=== PATIENT | female | born 1955 | race Caucasian/White ===

== ENCOUNTER 2022-06-29 10:20 | Outpatient (CLI) | payer MEDICARE, SELFPAY ==
[2022-06-29 19:40] LABS: Alanine Aminotransferase 39 U/L (6-35); Albumin Level 4.2 g/dL (3.5-5.1); Alkaline Phosphatase 67 U/L (38-126); Anion Gap 3 mmol/L (8-16); Aspartate Amino Transferase 50 U/L (14-36); Bilirubin,Total 0.7 mg/dL (0.2-1.3); Blood Urea Nitrogen 12 mg/dL (7-17); Calcium 9.2 mg/dL (8.4-10.2); Carbon Dioxide 32 mmol/L (22-30); Chloride 98 mmol/L (98-107); Cholesterol 206 mg/dL (0-200); Estimated Glomerular Filt Rate > 60; Glucose 99 mg/dL (65-110); HDL Direct 34 mg/dL; Potassium 4.4 mmol/L (3.4-5.0); Sodium 133 mmol/L (137-145); Triglycerides 163 mg/dL (<150)
[2022-06-29 19:51] LABS: LDL Cholesterol Direct 126 mg/dL
[2022-06-29 20:37] LABS: Hemoglobin 15.3 g/dL (12.0-15.0); Mean Corpuscular HGB Conc 31.9 g/dl (32-36); Mean Corpuscular Hemoglobin 30.7 pg (26-34); Mean Corpuscular Volume 96.2 fl (80-100); Mean Platelet Volume 10.4 fl (7.4-10.4); Platelet Count Result 418 k/mm3 (150-375); Red Blood Count 4.99 M/mm3 (4.2-5.4); Red Cell Distribution Width 13.2 % (11.5-14.5); White Blood Count 9.1 K/mm3 (4.5-10.0)
[2022-07-03 15:43] LABS: Vitamin D 1,25 (OH)2 Total 63 pg/mL (18-72); Vitamin D2 1,25 (OH)2 <8 pg/mL; Vitamin D3 1,25 (OH)2 63 pg/mL
== END 2022-06-29 10:21 | disposition home or self-care (01) ==
LOC: ANHGOSHLAB 10:25
PROVIDERS: PCP Family Medicine; Visit Provider Family Medicine
DX: E66.9 Obesity, unspecified (principal); K21.9 Gastro-esophageal reflux disease without esophagitis; K58.9 Irritable bowel syndrome, unspecified; E55.9 Vitamin D deficiency, unspecified; Z79.899 Other long term (current) drug therapy
CPT/HCPCS: 36415; 80053; 80061; 82652; 84443; 85027

== ENCOUNTER 2022-08-23 01:01 | Day surgery (SDC) | payer MEDICARE, SELFPAY ==
[2022-08-11 10:26] VITALS: BMI 35.9
[2022-08-23 11:46] VITALS: BP 148/70; PULSE 78; RESP 18; TEMP 36.3; O2SAT 97
[2022-08-23] MEDS: LACTATED RINGERS 1,000 ML 150 ML IV CONT (12:07)
--- NOTE | 2022-08-23 12:20 | WPDANESEPPF ---
Anes - Initial Pre Proc Eval Procedure: Operation Date: 08/23/22 13:00 Proposed Procedures p Esophagogastroduodenoscopy & Colonoscopy - Jorge Wilson MD Date/Time: 08/23/22 12:20 Surgeon: Jorge Wilson MD Pre Op Diagnosis: hx colon polyps, GERD Patient Data Age: 66 Gender: F Height: 1.63 m Weight: 96.7 kg Last Vital Signs Temp 97.3 F L 08/23/22 11:46 Pulse 78 08/23/22 11:46 Resp 18 08/23/22 11:46 BP 148/70 H 08/23/22 11:46 Pulse Ox 97 08/23/22 11:46 O2 Del Method Room Air 08/23/22 11:46 Allergies Allergy/AdvReac Type Severity Reaction Status Date / Time bupropion [From Wellbutrin] Allergy Hives Verified 08/23/22 11:44 hydrocodone [From Vicodin] Allergy Itching Verified 08/23/22 11:44 Home Medications Medication Instructions Recorded Confirmed Type cholecalciferol (vitamin D3) 125 125 mcg PO DAILY 01/18/22 08/11/22 History mcg (5,000 unit) capsule ibuprofen 200 mg tablet (Advil) 200 mg PO Q6H PRN Pain 01/18/22 08/11/22 History omega-3 fatty acids 500 mg capsule 500 mg PO DAILY 01/18/22 08/11/22 History multivitamin 1 tablet PO DAILY 07/06/22 08/11/22 History apremilast 30 mg tablet (Otezla) 30 mg PO DAILY 08/11/22 08/11/22 History Patient hx anesthesia problems: none Family hx anesthesia problems: none Results Review: All pre-operative results and documents have been reviewed as part of the pre-operative evaluation. [facility] Past Medical History Medical History GERD (gastroesophageal reflux disease) IBS (irritable bowel syndrome) Surgical History Surgical History H/O: hysterectomy (~1999) History of cholecystectomy (~2005) History of tonsillectomy (~1972) Hx of lithotripsy (~2018) Family History Family History Father Alcoholism Asthma Cancer Depression Anxiety Sibling Alcoholism Asthma Cancer Depression Anxiety Grandparent Cancer Mother Depression Anxiety Cerebrovascular accident Social History Social History Social History: Caffeine-tea/soda Smoking packs per day: 0.5 Smoking cigarettes per day: 10.0 Years smoked: 10 Smoking pack-years: 5.00 Smoking status: Former smoker Tobacco type: cigarettes Alcohol intake: never Alcohol use details: wine Substance use type: does not use Lack of Transportation: No Lack of Food: Never True Current Housing: I Have Housing Concerned About Future Housing: No Difficulty Paying Gas/Electric Bills: No Difficulty Paying for Meds: No Currently Unemployed: No Education: Associate Degree Difficulty w/ Childcare or Family Care: No Living arrangements: with family Spiritual care concerns: No Anes - Eval Final PreProcedure Day of Procedure 08/23/22 12:20 Results Review: All pre-operative results and documents have been reviewed as part of the pre-operative evaluation. Informed Consent: The patient's anesthetic plan and its attendant risks and benefits were discussed with the patient/family/POA. Questions were solicited and answers provided to the satisfaction of the patient/family/POA.
--- NOTE | 2022-08-23 12:34 | WPDANESEPPF ---
Anes - Initial Pre Proc Eval Procedure: Operation Date: 08/23/22 13:00 Proposed Procedures p Esophagogastroduodenoscopy & Colonoscopy - Jorge Wilson MD Date/Time: 08/23/22 12:34 Surgeon: Jorge Wilson MD Pre Op Diagnosis: hx colon polyps, GERD Patient Data Age: 66 Gender: F Height: 1.63 m Weight: 96.7 kg Last Vital Signs Temp 97.3 F L 08/23/22 11:46 Pulse 78 08/23/22 11:46 Resp 18 08/23/22 11:46 BP 148/70 H 08/23/22 11:46 Pulse Ox 97 08/23/22 11:46 O2 Del Method Room Air 08/23/22 11:46 Allergies Allergy/AdvReac Type Severity Reaction Status Date / Time bupropion [From Wellbutrin] Allergy Hives Verified 08/23/22 11:44 hydrocodone [From Vicodin] Allergy Itching Verified 08/23/22 11:44 Home Medications Medication Instructions Recorded Confirmed Type cholecalciferol (vitamin D3) 125 125 mcg PO DAILY 01/18/22 08/11/22 History mcg (5,000 unit) capsule ibuprofen 200 mg tablet (Advil) 200 mg PO Q6H PRN Pain 01/18/22 08/11/22 History omega-3 fatty acids 500 mg capsule 500 mg PO DAILY 01/18/22 08/11/22 History multivitamin 1 tablet PO DAILY 07/06/22 08/11/22 History apremilast 30 mg tablet (Otezla) 30 mg PO DAILY 08/11/22 08/11/22 History Patient hx anesthesia problems: none Family hx anesthesia problems: none Results Review: All pre-operative results and documents have been reviewed as part of the pre-operative evaluation. [facility] Past Medical History Medical History GERD (gastroesophageal reflux disease) IBS (irritable bowel syndrome) Surgical History Surgical History H/O: hysterectomy (~1999) History of cholecystectomy (~2005) History of tonsillectomy (~1972) Hx of lithotripsy (~2018) Family History Family History Father Alcoholism Asthma Cancer Depression Anxiety Sibling Alcoholism Asthma Cancer Depression Anxiety Grandparent Cancer Mother Depression Anxiety Cerebrovascular accident Social History Social History Social History: Caffeine-tea/soda Smoking packs per day: 0.5 Smoking cigarettes per day: 10.0 Years smoked: 10 Smoking pack-years: 5.00 Smoking status: Former smoker Tobacco type: cigarettes Alcohol intake: never Alcohol use details: wine Substance use type: does not use Lack of Transportation: No Lack of Food: Never True Current Housing: I Have Housing Concerned About Future Housing: No Difficulty Paying Gas/Electric Bills: No Difficulty Paying for Meds: No Currently Unemployed: No Education: Associate Degree Difficulty w/ Childcare or Family Care: No Living arrangements: with family Spiritual care concerns: No Anes - Eval Final PreProcedure Day of Procedure 08/23/22 12:34 Patient weight: obese Heart: regular rate and rhythm Lungs: clear to auscultation Airway: Mallampati scale class II Neurological: alert and oriented Last oral intake: >/= 8 hours ASA classification: II Emergent: no Anesthetic plan: proceed Anesthesia type and monitoring: general GIVS and standard monitoring Results Review: All pre-operative results and documents have been reviewed as part of the pre-operative evaluation. Informed Consent: The patient's anesthetic plan and its attendant risks and benefits were discussed with the patient/family/POA. Questions were solicited and answers provided to the satisfaction of the patient/family/POA.
--- NOTE | 2022-08-23 12:36 | PM.HPGS ---
History of Present Illness History of Present Illness Consent: Risks, benefits, and alternatives have been discussed and questions answered. Patient agrees to proceed with procedure. Chief complaint: hx colon polyps, GERD Narrative: Celina Kent is a 66 year old female with gerd diagnosed after cough but now improved, not using ppi. She has ibs with intermittent diarrhea not using any medication, last colonoscopy in 2017 with polyps. Review of Systems Constitutional: Constitutional: Denies headache(s) and Denies weakness Eyes: Eyes: Denies blurry vision ENT: Reports Normal hearing present, Denies headache(s) and Denies neck pain Cardiovascular: Cardiovascular: Denies chest pain and Denies dyspnea Respiratory: Respiratory: Denies dyspnea Gastrointestinal: Gastrointestinal: Reports no additional gastrointestinal complaints Genitourinary: Genitourinary: Denies dysuria Musculoskeletal: Musculoskeletal: Denies neck pain Integumentary/Breasts: Skin/Breast: Denies dry skin Neurologic: Reports Normal hearing present, Denies headache(s) and Denies weakness Psychiatric: Psychiatric: Denies anxiety Endocrine: Endocrine: Denies change in body appearance Hematologic/Lymphatic: Hematologic/Lymphatic: Denies easy bleeding Allergic/Immunologic: Allergic/Immunologic: Denies urticaria PMFSH Past Medical History Medical History (Updated 08/23/22 @ 12:37 by Jorge Wilson MD) Adenomatous colon polyp GERD (gastroesophageal reflux disease) IBS (irritable bowel syndrome) Surgical History Surgical History H/O: hysterectomy (~1999) History of cholecystectomy (~2005) History of tonsillectomy (~1972) Hx of lithotripsy (~2019) Family History Family History Father Alcoholism Asthma Cancer Depression Anxiety Sibling Alcoholism Asthma Cancer Depression Anxiety Grandparent Cancer Mother Depression Anxiety Cerebrovascular accident Social History Social History Social History: Caffeine-tea/soda Smoking packs per day: 0.5 Smoking cigarettes per day: 10.0 Years smoked: 10 Smoking pack-years: 5.00 Smoking status: Former smoker Tobacco type: cigarettes Alcohol intake: never Alcohol use details: wine Substance use type: does not use Lack of Transportation: No Lack of Food: Never True Current Housing: I Have Housing Concerned About Future Housing: No Difficulty Paying Gas/Electric Bills: No Difficulty Paying for Meds: No Currently Unemployed: No Education: Associate Degree Difficulty w/ Childcare or Family Care: No Living arrangements: with family Spiritual care concerns: No Meds Home Medications and Allergies Home Medications Medication Instructions Recorded Confirmed Type cholecalciferol (vitamin D3) 125 125 mcg PO DAILY 01/18/22 08/11/22 History mcg (5,000 unit) capsule ibuprofen 200 mg tablet (Advil) 200 mg PO Q6H PRN Pain 01/18/22 08/11/22 History omega-3 fatty acids 500 mg capsule 500 mg PO DAILY 01/18/22 08/11/22 History multivitamin 1 tablet PO DAILY 07/06/22 08/11/22 History apremilast 30 mg tablet (Otezla) 30 mg PO DAILY 08/11/22 08/11/22 History Allergies Allergy/AdvReac Type Severity Reaction Status Date / Time bupropion [From Wellbutrin] Allergy Hives Verified 08/23/22 11:44 hydrocodone [From Vicodin] Allergy Itching Verified 08/23/22 11:44 Vital Signs Vital Signs - 24 hr 08/23/22 11:46 Temperature 97.3 F L Pulse Rate 78 Respiratory Rate 18 Blood Pressure 148/70 H Pulse Oximetry 97 Oxygen Delivery Room Air Exam Const: General: comfortable and no acute distress HENMT: Face/Nose/Sinus: Normal nares present Eyes: General: appearance normal, both eyes and all related structures Neck: Neck: no JVD Resp: Auscultation: clear t
--- NOTE | 2022-08-23 12:53 | SUR.OPER ---
EGD: [id number] COLON: [id number]
[2022-08-23 13:03] VITALS: BP 116/60; PULSE 90; RESP 22; O2SAT 97
[2022-08-23 13:13] VITALS: BP 111/57; PULSE 85; RESP 22; O2SAT 98
[2022-08-23 13:23] VITALS: BP 120/64; PULSE 81; RESP 21; O2SAT 98
== END 2022-08-23 13:37 | disposition home or self-care (01) ==
PROVIDERS: PCP Family Medicine; Visit Provider Internal Medicine Gastroenterology
PROC: 0DJ08ZZ Inspection of Upper Intestinal Tract, Via Natural or Artificial Opening Endoscopic (ICD-10-PCS; CPT 43235; principal; 2022-08-23 13:00)
DX: K58.9 Irritable bowel syndrome, unspecified (principal); K64.8 Other hemorrhoids; Z86.010 Personal history of colon polyps; K21.9 Gastro-esophageal reflux disease without esophagitis; K31.7 Polyp of stomach and duodenum; K29.50 Unspecified chronic gastritis without bleeding; Z87.891 Personal history of nicotine dependence; E66.9 Obesity, unspecified; Z68.36 Body mass index [BMI] 36.0-36.9, adult
CPT/HCPCS: 45380; 43239; 88305; 88342; J2704; J7120

== ENCOUNTER 2022-09-15 10:31 | Outpatient (CLI) | payer MEDICARE, SELFPAY ==
[2022-09-15 19:00] LABS: Hematocrit 45.8 % (37.0-47.0); Hemoglobin 14.8 g/dL (12.0-15.0); Mean Corpuscular HGB Conc 32.3 g/dl (32-36); Mean Corpuscular Hemoglobin 30.6 pg (26-34); Mean Corpuscular Volume 94.8 fl (80-100); Mean Platelet Volume 9.7 fl (7.4-10.4); Platelet Count Result 394 k/mm3 (150-375); Red Blood Count 4.83 M/mm3 (4.2-5.4); Red Cell Distribution Width 12.8 % (11.5-14.5)
[2022-09-15 19:41] LABS: Vitamin D 25 Hydroxy 31.2 ng/mL
[2022-09-15 19:53] LABS: Hemoglobin A1C 5.5 % (<5.7)
[2022-09-15 19:57] LABS: Alanine Aminotransferase 32 U/L (6-35); Alkaline Phosphatase 74 U/L (38-126); Anion Gap 5 mmol/L (8-16); Aspartate Amino Transferase 49 U/L (14-36); Bilirubin,Total 0.7 mg/dL (0.2-1.3); Blood Urea Nitrogen 10 mg/dL (7-17); Calcium 9.1 mg/dL (8.4-10.2); Carbon Dioxide 33 mmol/L (22-30); Chloride 102 mmol/L (98-107); Cholesterol 198 mg/dL (0-200); Estimated Glomerular Filt Rate > 60; Glucose 88 mg/dL (65-110); HDL Direct 36 mg/dL; Potassium 3.9 mmol/L (3.4-5.0); Sodium 140 mmol/L (137-145); Triglycerides 153 mg/dL (<150)
[2022-09-15 20:14] LABS: LDL Cholesterol Direct 131 mg/dL
[2022-09-21 05:40] LABS: Ceruloplasmin 29 mg/dL (18-53)
[2022-09-21 19:54] LABS: HLA B27 Negative (Negative)
[2022-09-21 22:24] LABS: Mitochondrial (M2) Ab (IgG) 42.1 U (<=20.0)
== END 2022-09-15 10:32 | disposition home or self-care (01) ==
LOC: ANHGOSHLAB 10:36
PROVIDERS: Nurse Practitioner; PCP Family Medicine; Visit Provider Internal Medicine Gastroenterology
DX: E78.5 Hyperlipidemia, unspecified (principal); E55.9 Vitamin D deficiency, unspecified; L40.9 Psoriasis, unspecified; R74.8 Abnormal levels of other serum enzymes; Z13.6 Encounter for screening for cardiovascular disorders; Z79.899 Other long term (current) drug therapy; Z13.1 Encounter for screening for diabetes mellitus; Z13.29 Encounter for screening for other suspected endocrine disorder
CPT/HCPCS: 36415; 80053; 80061; 82306; 82390; 83036; 83520; 84443; 85027; 86038; 86812

== ENCOUNTER 2022-09-30 13:50 | Outpatient (CLI) | payer MEDICARE, SELFPAY ==
--- NOTE | ~2022-09-30 | DEXA_ITS ---
Bone Density Report Name: JENNIFER PACK Age: 66 Sex: Female Ethnicity: White Date of : 1955 Indication: postmenopausal; screening for osteoporosis; height loss; inflammatory bowel disease; Referring Provider: EDWIN CLARK Study: Bone densitometry was performed. Exam Date: September 30, 2022 Accession number: [id number] Bone Density: Region BMD T-score Z-score Classification AP Spine(L1-L4) 1.017 -0.3 1.6 Normal Femoral Neck (Left) 0.676 -1.6 0.1 Osteopenia Total Hip (Left) 0.904 -0.3 1.0 Normal Femoral Neck (Right) 0.715 -1.2 0.4 Osteopenia Total Hip (Right) 0.861 -0.7 0.7 Normal Total Hip Mean 0.882 -0.5 0.9 Normal World Health Organization criteria for BMD impression classify patients as: Normal (T-score at or above -1.0), Osteopenia (T-score between -1.0 and -2.5), or Osteoporosis (T-score at or below -2.5). 10-year Fracture Risk(1): Major Osteoporotic Fracture 8.3% Hip Fracture 0.9% Reported Risk Factors: [place] (), Neck BMD=0.676, BMI=39.0 (1) FRAX(R) Version 3.08. Fracture probability calculated for an untreated patient. Fracture probability may be lower if the patient has received treatment. Clinical Information Provided by Patient: Has used the following medications: Vitamin D, Calcium Has the following medical conditions: Inflammatory bowel diseases Patient maximum height was 64 Menopause Age: 57 No regular weight bearing exercise Drinks caffeinated beverages Onset of menses at age 11 Number of children 1 Impression: The patient has low bone mass, based on the Left Femoral Neck T-score. The patient has an estimated ten-year risk of hip fracture of 0.9% and an estimated ten-year risk of major fracture of 8.3%, based on the WHO FRAX algorithm. Discussion: BONE DENSITY IS LOW AT ONE OR MORE SKELETAL SITES. This patient's lowest T-score is low at one or more skeletal sites. It meets the World Health Organization's (WHO) criteria for ?low bone mass? (T-score between -1.0 and -2.5). The patient's 10-year risk of fracture as calculated by FRAX is less than the threshold where pharmacological therapy is recommended by the National Osteoporosis Foundation (NOF). However, all treatment decisions require clinical judgment and consideration of individual patient factors, including patient preferences, comorbidities, previous drug use, risk factors not captured in the FRAX model (e.g., frailty, falls, vitamin D deficiency, increased bone turnover, interval significant decline in bone density) and possible under or overestimation of fracture risk by FRAX. The patient should follow a healthful lifestyle (good nutrition with adequate calcium and vitamin D, and appropriate weight-bearing exercise). Follow-Up: Consider repeating this study in 2 to 3 years to reasse
--- NOTE | ~2022-09-30 | MM_ITS ---
EXAMINATION: MM screening grabiel BI w nida HISTORY: Screening mammogram, family history of breast cancer in her sister. TECHNIQUE: Craniocaudal and mediolateral oblique 3-D tomosynthesis images were obtained and synthetic 2-D images were generated. CAD analysis was submitted and interpreted. COMPARISON: No prior mammogram is available for comparison at this institution. BREAST PARENCHYMAL COMPOSITION: There are scattered areas of fibroglandular density. FINDINGS: RIGHT BREAST: No suspicious mass, calcification, or architectural distortion are identified to sugges t malignancy. LEFT BREAST: There is focal asymmetry in the posterior third of the upper outer quadrant of the breas t. IMPRESSION: 1. Focal asymmetry of the left breast. 2. Additional mammographic views and possible breast ultrasound are recommended. BI-RADS Category 0: Incomplete: Needs additional imaging evaluation. Reviewed, dictated and finalized at location A. IMPRESSION: 1. Focal asymmetry of the left breast. 2. Additional mammographic views and possible breast ultrasound are recommended . BI-RADS Category 0: Incomplete: Needs additional imaging evaluation.
== END 2022-09-30 13:51 | disposition home or self-care (01) ==
LOC: ANHIMG 13:51
PROVIDERS: PCP Family Medicine; Visit Provider Family Medicine
DX: Z12.31 Encounter for screening mammogram for malignant neoplasm of breast (principal); Z78.0 Asymptomatic menopausal state; R92.8 Other abnormal and inconclusive findings on diagnostic imaging of breast; M85.852 Other specified disorders of bone density and structure, left thigh; M85.851 Other specified disorders of bone density and structure, right thigh
CPT/HCPCS: 77063; 77067; 77080

== ENCOUNTER 2022-10-04 11:38 | Outpatient (CLI) | payer MEDICARE, SELFPAY ==
[2022-10-04 20:50] LABS: Hepatitis B Surface Antigen Negative (Negative)
[2022-10-04 21:07] LABS: Hepatitis B Surface Anti Res Negative; Hepatitis C Virus Antibody Negative (Negative)
[2022-10-04 21:15] LABS: Iron 61 ug/dL (37-170)
[2022-10-04 22:13] LABS: Percent Iron Saturation 17 % (20-50)
[2022-10-04 22:29] LABS: Alanine Aminotransferase 30 U/L (6-35); Albumin Level 4.2 g/dL (3.5-5.1); Alkaline Phosphatase 77 U/L (38-126); Anion Gap 5 mmol/L (8-16); Aspartate Amino Transferase 38 U/L (14-36); Bilirubin,Total 0.6 mg/dL (0.2-1.3); Blood Urea Nitrogen 12 mg/dL (7-17); Carbon Dioxide 30 mmol/L (22-30); Chloride 102 mmol/L (98-107); Cholesterol 216 mg/dL (0-200); Estimated Glomerular Filt Rate > 60; Glucose 100 mg/dL (65-110); HDL Direct 39 mg/dL; Potassium 4.4 mmol/L (3.4-5.0); Sodium 137 mmol/L (137-145); Triglycerides 146 mg/dL (<150)
[2022-10-04 22:43] LABS: LDL Cholesterol Direct 154 mg/dL
[2022-10-15 00:01] LABS: ALT 20 U/L (6-29); Alpha-2-Macroglobulin 151 mg/dL (106-279); Apolipoprotein A1 167 mg/dL (101-198); Fibrosis Score 0.09; Fibrosis Stage F0; GGT 21 U/L (3-65); Haptoglobin 148 mg/dL (43-212); Necroinflammat Act Grade A0; Total Bilirubin 0.4 mg/dL (0.2-1.2)
== END 2022-10-04 11:39 | disposition home or self-care (01) ==
LOC: ANHGOSHLAB 11:40
PROVIDERS: PCP Family Medicine; Visit Provider Internal Medicine Gastroenterology
DX: R74.8 Abnormal levels of other serum enzymes (principal); E78.5 Hyperlipidemia, unspecified
CPT/HCPCS: 36415; 80053; 80061; 81596; 82728; 83540; 83550; 86706; 86803; 87340

== ENCOUNTER 2022-10-11 07:57 | Outpatient (CLI) | payer MEDICARE, SELFPAY ==
--- NOTE | ~2022-10-11 | US_ITS ---
US abdomen limited INDICATION: Abnormal levels of serum enzymes PROCEDURE: Realtime right upper abdominal ultrasound. COMPARISON: No prior studies for comparison. FINDINGS: The pancreas is normal without focal mass or pancreatic ductal dilation. Liver echotexture is increased, consistent with fatty infiltration. There is normal directional flow in the portal ve in. Gallbladder is surgically absent. Common bile duct measures 6 mm. No sonographic Wasserman's sign. IMPRESSION: 1: Hepatic steatosis. Reviewed, dictated and finalized at location B. IMPRESSION: 1: Hepatic steatosis.
== END 2022-10-11 07:58 | disposition home or self-care (01) ==
PROVIDERS: PCP Family Medicine; Visit Provider Nurse Practitioner
DX: R74.8 Abnormal levels of other serum enzymes (principal); K76.0 Fatty (change of) liver, not elsewhere classified
CPT/HCPCS: 76705

== ENCOUNTER 2022-12-22 10:28 | Outpatient (CLI) | payer MEDICARE, SELFPAY ==
[2022-12-22 10:58] LABS: Kit Draw Collected
== END 2022-12-22 10:29 | disposition home or self-care (01) ==
LOC: ANHGOSHLAB 10:31
PROVIDERS: PCP Family Medicine; Visit Provider Nurse Practitioner
DX: E78.5 Hyperlipidemia, unspecified (principal); R53.83 Other fatigue; R74.8 Abnormal levels of other serum enzymes; E55.9 Vitamin D deficiency, unspecified
CPT/HCPCS: 36415

== ENCOUNTER 2023-03-16 11:04 | Outpatient (CLI) | payer MEDICARE, SELFPAY ==
--- NOTE | 2023-03-16 11:22 | ECG_ITS ---
Measurements Intervals [place] Rate: 70 P: 33 VA: 180 QRS: 22 QRSD: 99 T: 29 QT: 393 QTc: 426 Interpretive Statements SINUS RHYTHM NO PREVIOUS ECG AVAILABLE FOR COMPARISON Electronically Signed On 03-16-2023 20:22:43 CDT by Felicitas Lucero M.D.
== END 2023-03-16 11:05 | disposition home or self-care (01) ==
LOC: ANHCARD 11:06
PROVIDERS: PCP Family Medicine; Visit Provider Family Medicine
DX: Z01.810 Encounter for preprocedural cardiovascular examination (principal)
CPT/HCPCS: 93005

== ENCOUNTER 2023-07-08 10:11 | Outpatient (CLI) | payer MEDICARE, SELFPAY ==
[2023-07-08 17:39] LABS: Iron 97 ug/dL (37-170)
[2023-07-08 17:48] LABS: Hematocrit 48.7 % (37.0-47.0); Hemoglobin 15.3 g/dL (12.0-15.0); Mean Corpuscular HGB Conc 31.4 g/dl (32-36); Mean Corpuscular Hemoglobin 29.5 pg (26-34); Mean Corpuscular Volume 93.8 fl (80-100); Mean Platelet Volume 9.8 fl (7.4-10.4); Platelet Count Result 441 k/mm3 (150-375); Red Blood Count 5.19 M/mm3 (4.2-5.4); Red Cell Distribution Width 13.1 % (11.5-14.5); White Blood Count 12.5 K/mm3 (4.5-10.0)
[2023-07-08 17:49] LABS: Percent Iron Saturation 29 % (20-50)
[2023-07-08 18:01] LABS: Alanine Aminotransferase 24 U/L (6-35); Albumin Level 4.2 g/dL (3.5-5.1); Alkaline Phosphatase 82 U/L (38-126); Anion Gap 5 mmol/L (8-16); Aspartate Amino Transferase 49 U/L (14-36); Bilirubin,Total 0.7 mg/dL (0.2-1.3); Blood Urea Nitrogen 11 mg/dL (7-17); Calcium 9.7 mg/dL (8.4-10.2); Carbon Dioxide 34 mmol/L (22-30); Chloride 101 mmol/L (98-107); Cholesterol 234 mg/dL (0-200); Estimated Glomerular Filt Rate > 60; Glucose 103 mg/dL (65-110); HDL Direct 37 mg/dL; Potassium 4.2 mmol/L (3.4-5.0); Sodium 140 mmol/L (137-145); Triglycerides 159 mg/dL (<150)
[2023-07-08 18:12] LABS: LDL Cholesterol Direct 160 mg/dL
[2023-07-12 02:08] LABS: Vitamin D 1,25 (OH)2 Total 61 pg/mL (18-72); Vitamin D2 1,25 (OH)2 <8 pg/mL; Vitamin D3 1,25 (OH)2 61 pg/mL
== END 2023-07-08 10:12 | disposition home or self-care (01) ==
LOC: ANHGOSHLAB 10:14
PROVIDERS: PCP Family Medicine; Visit Provider Family Medicine
DX: K76.0 Fatty (change of) liver, not elsewhere classified (principal); E78.5 Hyperlipidemia, unspecified; R74.8 Abnormal levels of other serum enzymes; Z79.899 Other long term (current) drug therapy; K21.9 Gastro-esophageal reflux disease without esophagitis; E55.9 Vitamin D deficiency, unspecified; E66.9 Obesity, unspecified
CPT/HCPCS: 36415; 80053; 80061; 82652; 82728; 83540; 83550; 84443; 85027

== ENCOUNTER 2023-12-16 11:52 | Outpatient (CLI) | payer MEDICARE, SELFPAY ==
[2023-12-24 17:03] LABS: Calprotectin, Stool 95 mcg/g
== END 2023-12-16 11:53 | disposition home or self-care (01) ==
LOC: ANHLAB 11:54
PROVIDERS: PCP Family Medicine; Visit Provider Nurse Practitioner Family
DX: R19.7 Diarrhea, unspecified (principal); R15.2 Fecal urgency
CPT/HCPCS: 83993

== ENCOUNTER 2024-01-03 07:30 | Outpatient (CLI) | payer MEDICARE, SELFPAY ==
--- NOTE | ~2024-01-03 | US_ITS ---
Limited ABDOMINAL ULTRASOUND Ordering provider: Jessica Santoro APRN History: . K76.0 - Fatty (change of) liver, not elsewhere classified . Comparison: None. FINDINGS: LIVER: Normal size. Fat infiltration is noted with increased echogenicity. No focal hepatic lesions o r perihepatic fluid collections are identified. Normal portal vein flow. GALLBLADDER: Status post surgical removal. BILIARY DUCTS: No evidence for intra or extrahepatic biliary dilation. Common bile duct measures 8.9 mm in diameter which is within normal limits. PANCREAS: Normal echotexture and size. UPPER ABDOMINAL AORTA: Normal in caliber. IVC: Patent. FREE FLUID: None. IMPRESSION: Fat infiltration of the liver. Otherwise, Unremarkable limited ultrasound of the abdomen. Reviewed, dictated and finalized at location A. IMPRESSION: Fat infiltration of the liver. Otherwise, Unremarkable limited ultrasound of th e abdomen.
== END 2024-01-03 07:31 | disposition home or self-care (01) ==
PROVIDERS: PCP Family Medicine; Visit Provider Nurse Practitioner Family
DX: K76.0 Fatty (change of) liver, not elsewhere classified (principal)
CPT/HCPCS: 76705

== ENCOUNTER 2024-03-01 14:33 | Outpatient (CLI) | payer MEDICARE, SELFPAY ==
--- NOTE | ~2024-03-01 | US_ITS ---
EXAMINATION: US venous doppler [facility] DATE: 03/01/2024 15:49 INDICATION: Lower limb edema. TECHNIQUE: Grayscale ultrasound images without and with compression and Doppler ultrasound images of the bilateral lower extremity veins were obtained. COMPARISON: None. FINDINGS: The visualized portions of right common femoral vein, profunda (deep) femoral vein, femoral vein, pop liteal vein, peroneal veins, posterior tibial veins, and greater saphenous vein outflow are patent. The visualized portions of left common femoral vein, profunda femoral vein, femoral vein, popliteal v ein, peroneal veins, posterior tibial veins, and greater saphenous vein outflow are patent. IMPRESSION: 1. No deep venous thrombosis. Reviewed, dictated and finalized at location A.
== END 2024-03-01 14:34 | disposition home or self-care (01) ==
LOC: ANHIMG 14:36
PROVIDERS: PCP Family Medicine; Visit Provider Nurse Practitioner
DX: R60.9 Edema, unspecified (principal)
CPT/HCPCS: 93970

== ENCOUNTER 2024-06-18 11:10 | Emergency (ER) | payer MEDICARE, SELFPAY ==
--- NOTE | ~2024-06-18 | XR_ITS ---
EXAMINATION: XR chest 2V DATE: 06/18/2024 12:36 INDICATION: 2 days of cough TECHNIQUE: PA and lateral views of the chest were obtained. COMPARISON: None FINDINGS: Mild streaky lingular atelectasis along side a small left paracardial fat pad. No other airspace opac ities, pulmonary edema, pleural effusion or pneumothorax. Heart size is normal. Moderate thoracic spo ndylosis. Cholecystectomy clips in right upper quadrant. IMPRESSION: 1. Mild streaky lingular atelectasis. Reviewed, dictated and finalized at location B. L INSPECTOR
[2024-06-18 11:32] VITALS: BP 139/95; PULSE 87; RESP 18; TEMP 36.6; O2SAT 99
--- NOTE | 2024-06-18 12:02 | ED_ITS ---
HPI - URI/Sore Throat General Chief Complaint: Upper Respiratory Infection Stated Complaint: Cough Time Seen by Provider: 06/18/24 12:02 Source: patient Mode of arrival: ambulatory Limitations: no limitations History of Present Illness HPI Narrative: 68-year-old female presented for complaint of a cough for 4 days. Denies associated shortness of breath, chest pain, palpitations, nausea, vomiting, fevers or lethargy. Related Data Home Medications ?Medication ?Instructions ?Recorded ?Confirmed ?Last Taken ?Type cholecalciferol (vitamin D3) 125 125 mcg PO DAILY 01/18/22 06/18/24 08/19/22 History mcg (5,000 unit) capsule ibuprofen 200 mg tablet (Advil) 200 mg PO Q6H PRN Pain 01/18/22 06/18/24 Unknown History omega-3 fatty acids 500 mg capsule 500 mg PO DAILY 01/18/22 06/18/24 08/19/22 History multivitamin 1 tablet PO DAILY 07/06/22 06/18/24 08/19/22 History apremilast 30 mg tablet (Otezla) 60 mg PO DAILY 11/16/22 06/18/24 Unknown History vitamin E (dl, acetate) 45 mg (100 135 mg PO DAILY 11/16/22 06/18/24 Unknown History unit) capsule ascorbate calcium (vitamin C) 500 500 mg PO DAILY 07/08/23 06/18/24 Unknown History mg tablet Allergies Allergy/AdvReac Type Severity Reaction Status Date / Time bupropion (From Wellbutrin) Allergy Hives Verified 06/18/24 11:38 hydrocodone (From Vicodin) Allergy Itching Verified 06/18/24 11:38 Review of Systems Review of Systems: CONSTITUTIONAL: Denies body aches, fever, chills, or sweats. EYES: Denies visual changes, redness, or discharge. ENT: Denies rhinorrhea, congestion, sore throat, or otalgia. CARDIOVASCULAR: Denies chest pain, palpitations, or edema. RESPIRATORY: Reports cough, denies sob, wheezing. GASTROINTESTINAL: Denies abdominal pain, nausea, vomiting, or diarrhea. MUSCULOSKELETAL: Denies back pain, joint pain, or myalgia. NEUROLOGIC: Reports headache All systems reviewed & are unremarkable except as noted in HPI and below PMFSH Past Medical History Medical History BMI 39.0-39.9,adult Fatty liver Primary biliary cholangitis Irritable bowel syndrome with diarrhea Adenomatous colon polyp GERD (gastroesophageal reflux disease) IBS (irritable bowel syndrome) Surgical History Surgical History History of tonsillectomy (~1972) H/O: hysterectomy (~1999) History of cholecystectomy (~2005) Hx of lithotripsy (~2018) Family History Family History Father Alcoholism Asthma Cancer Depression Anxiety Sibling Alcoholism Asthma Cancer Depression Anxiety Grandparent Cancer Mother Depression Anxiety Cerebrovascular accident Social History Social History Social History: Caffeine-tea/soda Smoking packs per day: 0.5 Smoking cigarettes per day: 10.0 Years smoked: 10 Smoking pack-years: 5.00 Smoking status: Former smoker Tobacco type: cigarettes Alcohol intake: never Alcohol use details: wine Substance use type: does not use Lack of Transportation: No Lack of Food: Never True Current Housing: I Have Housing Concerned About Future Housing: No Difficulty Paying Gas/Electric Bills: No Difficulty Paying for Meds: No Currently Unemployed: No Education: Associate Degree Difficulty w/ Childcare or Family Care: No Living arrangements: with family Spiritual care concerns: No Comments At time of signature, I have reviewed and agree with nursing past medical, surgical, social and family history unless otherwise noted. Please see nursing chart for further information. There is no relevant family history pertinent to the presenting complaint Exam Narrative: GENERAL: Well-appearing, in no acute distress. EYES: EOMI. No redness or drainage. Conjunctivae normal. ENT: Mucous membranes pink and moist. No rhinorrhea. TMs normal bilaterally. Throat normal. Uvula midline. NECK: Normal AROM. Supple. CHEST: No respiratory distress. Lungs clear to all zaragoza. Frequent harsh nonproductive cough HEART: Regular rate and rhythm. No murmur appreciated. ABDOMEN: Soft, nontender, nondistended, normal active bowel sounds. SKIN: Warm, dry, no rash. Capillary refill normal. Normal skin turgor. NEURO: Alert and oriented x3. Gait steady. PSYCH: Normal affect. Course Course Emergency Course: Patient is aware of diagnosis, understands and agrees to treatment plan. Anticipatory guidance given. Patient agrees to follow-up as directed and is aware of reasons to seek care at the emergency department. Portions of this record may have been created with voice recognition software Level of Care: Express Care Visit Vital Signs Vital signs: Vital Signs Temperature 97.9 F 06/18/24 11:32 Pulse Rate 87 06/18/24 11:32 Respiratory Rate 18 06/18/24 11:32 Blood Pressure 139/95 H 06/18/24 11:32 Pulse Oximetry 99 06/18/24 11:32 Oxygen Delivery Room Air 06/18/24 11:32 Temperature 97.9 F 06/18/24 11:32 Pulse Rate 87 06/18/24 11:32 Respiratory Rate 18 06/18/24 11:32 Blood Pressure 139/95 H 06/18/24 11:32 Pulse Oximetry 99 06/18/24 11:32 Oxygen Delivery Room Air 06/18/24 11:32 MDM - URI/Sore Throat MDM Narrative Medical decision making narrative: Discussed physical exam findings, negative flu and COVID. Chest x-ray reviewed with patient.. Advised supportive measures and signs/symptoms to go to the ER. Pt is appropriate for outpt treatment and f/u. Lab Data Labs: Lab Results 06/18/24 Range/Units 11:58 POC Influenza A Ag Negative (Negative) POC Influenza B Ag Negative (Negative) POC SARS CoV-2 Ag Negative (Negative) Imaging Data Radiologist's impression: Patient: Celina Kent : 1955 MR#: [id number] Age: 68 Acct:[id number] Loc: [facility] ADM Date: 06/18/24Attending Dr: Ordering Physician: Nicki Hatfield APRN Date of Service: 06/18/24 Procedure(s): XR chest 2V Accession Number(s): [id number] cc: Nicki Hatfield APRN; Cici Mcknight DO~ EXAMINATION: XR chest 2V DATE: 06/18/2024 12:36 INDICATION: 2 days of cough TECHNIQUE: PA and lateral views of the chest were obtained. COMPARISON: None FINDINGS: Mild streaky lingular atelectasis along side a small left paracardial fat pad. No other airspace opacities, pulmonary edema, pleural effusion or pneumothorax. Heart size is normal. Moderate thoracic spondylosis. Cholecystectomy clips in right upper quadrant. IMPRESSION: 1. Mild streaky lingular atelectasis. Discharge Plan Discharge Clinical Impression: Bronchitis Patient Disposition: Home, Self-Care Condition: Stable Instructions: Antibiotic Form, Acute Bronchitis (ED) Additional Instructions: Flu and COVID negative. Acute bronchitis can be contagious because it is usually caused by infection with a virus or bacteria. It is usually for a few days but you can be contagious for up to one week. Avoid crowds until you do not have a fever and symptoms are improved Take medication as directed Recommend Flonase spray and Zyrtec (or Claritin/Lacey) over the counter Cough syrup may cause drowsiness; avoid driving or take it at night time. Tylenol 1000mg every 8 hours as needed for pain Symptomatic treatment includes: rest, fluids, and increase humidity of the air at home. Follow up with your primary care provider as needed in 1 week Go to the ER for worsening symptoms or concerns Patient Language: [place] Citizen Prescriptions: New benzonatate 200 mg capsule 200 mg PO TID PRN (Reason: cough) Qty: 20 0RF azithromycin [Zithromax Z-Nando] 250 mg tablet See Rx Instructions .ROUTE .COMPLEX Qty: 6 0RF Rx Instructions: For 250 mg dose pack: take 500 mg today (day 1), then 250 mg for 4 days (days 2-5) No Action ibuprofen [Advil] 200 mg tablet 200 mg PO Q6H PRN (Reason: Pain) cholecalciferol (vitamin D3) 125 mcg (5,000 unit) capsule 125 mcg PO DAILY omega-3 fatty acids 500 mg capsule 500 mg PO DAILY multivitamin Tablet 1 tablet PO DAILY vitamin E (dl, acetate) 45 mg (100 unit) capsule 135 mg PO DAILY ascorbate calcium (vitamin C) 500 mg tablet 500 mg PO DAILY Otezla 30 mg tablet 60 mg PO DAILY Follow-up/Referrals: Cici Mcknight DO [Primary Care Provider] -
[2024-06-18 12:06] LABS: EDCOVIDSCREEN Negative (Negative); EDINFLUASCREEN Negative (Negative); EDINFLUBSCREEN Negative (Negative)
== END 2024-06-18 13:14 | disposition home or self-care (01) ==
PROVIDERS: Emergency Provider Nurse Practitioner Family; PCP Family Medicine
DX: J40 Bronchitis, not specified as acute or chronic (principal); Z20.822 Contact with and (suspected) exposure to COVID-19; Z87.891 Personal history of nicotine dependence; K21.9 Gastro-esophageal reflux disease without esophagitis; K76.0 Fatty (change of) liver, not elsewhere classified
CPT/HCPCS: 71046; 87426; 87804; 99213; G0463

== ENCOUNTER 2024-06-18 13:20 | Outpatient (CLI) | payer MEDICARE, SELFPAY ==
--- OUTSIDE RECORDS SUMMARY | 2024-06-18 14:03 | XMS_ITS | Patient Health Summary ---
Author Organization [facility] Address [address] [place] [address] Care Team Providers Care Senior Oracle Soa Developer Name Role Phone Cici Mcknight DO Primary Care Provider [phone] Note from [facility],non-owned Affiliates and Associated Physician Practices is amultiple site organization consisting of ambulatory clinics and hospital sitesin [place], [place], [place] and [place]. This disclosure is being madepursuant to the Care Everywhere program and may not contain all information available regarding this patient. Last updated 18.[facility] Allergies * Adhesive Sensitivity(Rash) -Medium Criticality * Hydrocodone(Itching) -Medium Criticality * Bupropion(Urticaria,Rash) -Medium Criticality Medications * Be aware that medications may not be up to date on this document. Alwaysverify current medications with the patient. * CRANBERRY PO Take 700 mg by mouth once daily * ibuprofen (Advil) 200 MG capsule Take 1 (one) capsule by mouth 2 times daily as needed * Red Yeast Rice Extract (RED YEAST RICE PO) Take 200 mg by mouth once daily * Cholecalciferol ( Vitamin D3) 100 MCG (4000 UT) Take 1 capsule by mouth once daily * Multiple Vitamin (MULTIVITAMIN PO) Take by mouth once daily * Vitamin E 268 MG (400 UNIT) TABS Take 1 tablet by mouth once daily * ascorbic acid (Vitamin C) 500 MG tablet Take 1 (one) tablet by mouth once daily * Apremilast (Otezla) 30 MG Take 2 (two) tablets by mouth 2 times daily Active Problems Problem Noted Date Diagnosed Date Ptosis of both eyelids 02/10/2024 Dermatochalasis of both upper eyelids 02/10/2024 Xanthelasma of eyelid, bilateral 02/10/2024 Social History Tobacco Use Types Packs/Day Years Used Date Smoking Tobacco: Former Cigarettes Smokeless Tobacco: Never Tobacco Cessation:Counseling Given: Not Answered Alcohol Use Standard Drinks/Week Comments Yes 0 (1 standard drink = 0.6 oz pur e alcohol) 1 glass of wine per month AUDIT-C Answer Date Recorded Q1: How often do you have a drink containing alcohol? Never 05/09/2024 Q2: How many drinks containi ng alcohol do you have on a typical day when you are drinking? Patient does not drink Q3: How often do you have si x or more drinks on one occasion? Never 05/09/2024 Sex and Gender Information Value Date Recorded Sex Assigned at Not on file Gender Identity Not on file Sexual Orientation Not on file Last Filed Vital Signs Vital Sign Reading Time Taken Comments Blood Pressure 139/74 05/09/2024 1:46 PM REST ROOM ATTENDANT Pulse 77 05/09/2024 1:46 PM REST ROOM ATTENDANT Temperature 36.3 ??C (97.4 ??F) 05/09/2024 1:36 PM CS T Respiratory Rate 13 05/09/2024 1:46 PM REST ROOM ATTENDANT Oxygen Saturation 92% 05/09/2024 1:46 PM REST ROOM ATTENDANT Inhaled Oxygen Concentration - - Weight 93.9 kg (207 lb) 05/09/2024 9:32 AM REST ROOM ATTENDANT Height 162.6 cm (5' 4 ) 05/09/2024 9:32 AM REST ROOM ATTENDANT Body Mass Index 35.53 05/09/2024 9:32 AM REST ROOM ATTENDANT Procedures * KS FIX LID PTOSIS,LEVATR RESEC,CORRESPONDENCE ANALYST(Performed 05/09/2024) Performed for Ptosis of both eyelids, Dermatochalasis of both upper eyelids, Xanthelasma of eyelid,bilateral * KEITH AUTO VISUAL FIELD EXTENDED(Performed 01/31/2024) Performed for Ptosis of both eyelids Results * KEITH AUTO VISUAL FIELD EXTENDED (01/31/2024 3:34 PM CDT) Anatomical Region Laterality Modality Head External-Camera Photography Narrative 02/15/2024 2:08 PM CDT Keith visual field Reversible superior visual field deficit Right: 25 degrees to 33 degrees Left: 23 degrees to 37 degrees Nicki Ellis ADMINISTRATIVE PROGRAM SPECIALIST-INSTRUCTOR TRAFFIC SAFETY OPHTHALMOLOGY S CHED ORD W PACS Care Teams Senior Oracle Soa Developer Relationship Specialty Start Date End Date Cici Mcknight DO [address] [place] [address] PCP - General 09/14/22
--- OUTSIDE RECORDS SUMMARY | 2024-06-18 14:03 | XMS_ITS | Referral Summary ---
Author Organization [facility] Address [address] [place] [address] Care Team Providers Care Grand Jury Deputy Sheriff Name Role Phone Cici Mcknight DO Primary Care Provider [phone] Social History Tobacco Use Types Packs/Day Years Used Date Smoking Tobacco: Never Assessed Personal Safety Answer Date Recorded Getting School Help Needed Not on file 09/26 Comments Unknown Sex and Gender Information Value Date Recorded Sex Assigned at Not on file Legal Sex Female 9:32 AM CDT Gender Identity Not on file Sexual Orientation Not on file Plan of Treatment Not on file Procedures Procedure Name Priority Date/Time Associated Diagnosis Comments SCREENING MAMMOGRAM BILATERAL W ERIC Schedule Routine, Read Routine (OP Routine) 10/27/2023 3:13 PM CDT Screening mammogram, encounter for from Last 3 Months or Most Recently Relevant to Health Maintenance Results * Screening Mammogram Bilateral W Eric (10/27/2023 3:13 PM CDT) Anatomical Region Laterality Modality Breast Bilateral Mammography Narrative 10/28/2023 1:03 PM CDT Mammogram Technique: Bilateral Digital Breast Tomosynthesis, Bilateral C-view 2D Screening mammogram. ??Views obtained: ??bilateral craniocaudal and bilateral mediolateral oblique. ??Computer Aided Detection was performed. Mammogram Findings: The present examination has been compared to a prior imaging study performed at [facility]. [facility] on 09/30/2022. There are scattered areas of fibroglandular density. There is no suspicious abnormality in either breast. Impression: There is no mammographic evidence of malignancy. Annual screening mammography is recommended. OVERALL FINAL ASSESSMENT: BI-RADS CATEGORY 1: ??Negative. Procedure Note Earline Dorado MD - 10/28/2023 Mammogram Technique: Bilateral Digital Breast Tomosynthesis, Bilateral C-view 2D Screening mammogram. Views obtained: bilateral craniocaudal and bilateral mediolateral oblique. Computer Aided Detection was performed. Mammogram Findings: The present examination has been compared to a prior imaging study performed at [facility] on 09/30/2022. There are scattered areas of fibroglandular density. There is no suspicious abnormality in either breast. Impression: There is no mammographic evidence of malignancy. Annual screening mammography is recommended. OVERALL FINAL ASSESSMENT: BI-RADS CATEGORY 1: Negative. us Self Screening Mammogram IMG MAMMO PROCEDURES Fi nal Result from Last 3 Months or Most Recently Relevant to Health [place] [address] MEDICARE COMMERCIAL GENERIC [place] [id number] MEDICARE COMMERCIAL GENERIC Care Teams Grand Jury Deputy Sheriff Relationship Specialty Start Date End Date Cici Mcknight DO [facility] [place] [address] PCP - General Family Medicine 09/27/23
--- OUTSIDE RECORDS SUMMARY | 2024-06-18 14:03 | XMS_ITS | Clinical Summary ---
Author Organization [facility] Address [address] [place] [address] Care Team Providers Care Manager Cardiovascular Name Role Phone Cici Mcknight DO Primary Care Provider [phone] Source Comments [facility],non-owned Affiliates and Associated Physician Practices is amultiple site organization consisting of ambulatory clinics and hospital sitesin [place], [place], [place] and [place]. This disclosure is being madepursuant to the Care Everywhere program and may not contain all information available regarding this patient. Last updated 18.[facility] Allergies Active Allergy Reactions Criticality Noted Date Comments Adhesive Sensitivity Rash Medium 01/31/2024 Hydrocodone Itching Medium 01/31/2024 Bupropion Urticaria,Rash Medium 01/31/2024 Medications * Be aware that medications may not be up to date on this document. Alwaysverify current medications with the patient. Medication Sig Dispensed Refills Start Date End Date Status CRANBERRY PO Take 700 mg by mouth once daily Active ibuprofen (Advil) 200 MG capsule Take 1 (one) capsule by mouth 2 times daily as needed Active Red Yeast Rice Extract (RED YEAST RICE PO) Take 200 mg by mouth once daily Active Cholecalciferol (SM Vitamin D3) 100 MCG (4000 UT) Take 1 capsule by mouth once daily Active Multiple Vitamin (MULTIVITAMIN PO) Take by mouth once daily Active Vitamin E 268 MG (400 UNIT) TABS Take 1 tablet by mouth once daily Active ascorbic acid (Vitamin C) 500 MG tablet Take 1 (one) tablet by mouth once daily Active Apremilast (Otezla) 30 MG Take 2 (two) tablets by mouth 2 times daily Active Active Problems Problem Noted Date Diagnosed Date Ptosis of both eyelids 02/10/2024 Dermatochalasis of both upper eyelids 02/10/2024 Xanthelasma of eyelid, bilateral 02/10/2024 Encounters Date Type Department Care Team Description 05/17/2024 9:45 AM CUSTOMER RETENTION SPECIALIST Office Visit [facility] - Ophthalmology [address] [place] [phone] Jillian Gomes MD Ptosis of both eyelids (Primary Dx); Dermatochalasis of both upper eyelids; Xanthelasma of upper and lower eyelids of both eyes 05/17/2024 Travel 05/09/2024 11:07 AM CUSTOMER RETENTION SPECIALIST Anesthesia Event [facility] [address] [place] [phone] Chidi Walker MD Rinderer, Mallory, [facility] 05/09/2024 11:00 AM CUSTOMER RETENTION SPECIALIST - 05/09/2024 1:20 PM CUSTOMER RETENTION SPECIALIST Surgery [facility] [address] [place] [phone] Jillian Gomes MD Bilateral ptosis repair via blepharoplasty incision and excision of bilateral upper and lower eyelid xanthelasma, BILATERAL 05/09/2024 9:13 AM CUSTOMER RETENTION SPECIALIST - 05/09/2024 2:19 PM CUSTOMER RETENTION SPECIALIST Hospital Encounter [facility] [address] [place] [phone] Jillian Gomes MD Surgery General Discharge Disposition: Home or Self Care 05/09/2024 Travel from Last 3 Months Social History Tobacco Use Types Packs/Day Years [...] Comments Blood Pressure 139/74 05/09/2024 1:46 PM CUSTOMER RETENTION SPECIALIST Pulse 77 05/09/2024 1:46 PM CUSTOMER RETENTION SPECIALIST Temperature 36.3 ??C (97.4 ??F) 05/09/2024 1:36 PM CS T Respiratory Rate 13 05/09/2024 1:46 PM CUSTOMER RETENTION SPECIALIST Oxygen Saturation 92% 05/09/2024 1:46 PM CUSTOMER RETENTION SPECIALIST Inhaled Oxygen Concentration - - Weight 93.9 kg (207 lb) 05/09/2024 9:32 AM CUSTOMER RETENTION SPECIALIST Height 162.6 cm (5' 4 ) 05/09/2024 9:32 AM CUSTOMER RETENTION SPECIALIST Body Mass Index 35.53 05/09/2024 9:32 AM CUSTOMER RETENTION SPECIALIST Plan of Treatment Upcoming Encounters Date Type Department Care Team (Late st Contact Info) Description 07/11/2024 10:15 AM CUSTOMER RETENTION SPECIALIST Office Visit [facility] - Ophthalmology [address] [place] [phone] Jillian Gomes MD [address] [place] [address] [place] [phone] Health Maintenance Due Date Last Done Comments BONE DENSITY TESTING 1955 COLOGUARD (AGES 45-75) - COL ON CA SCREENING 1955 COLON MONITORING 1955 COLONOSCOPY - COLON CA SCREENING 1955 CT COLONOGRAPHY - COLON CA SCREENING 1955 Colorectal Cancer Screening 1955 FIT - COLON CA SCREENING 1955 FLEX SIG - COLON CA SCREENING 1955 LIPID TESTING 1955 MEDICARE AWV ? 12 MONTHS 1955 HEPATITIS C SCREENING 11/11/1973 DTAP/TDAP/TD VACCINES (1 - Tdap) 11/15/1974 PNEUMOCOCCAL VACCINE 50+ (1 of 1 - PCV) 11/15/2005 ZOSTER VACCINE (1 of 2) 11/15/2005 COVID-19 VACCINE (1 - 2023-2 5 season) 2024 INFLUENZA VACCINE (#1) 2024 SCREENING FOR DIABETES 05/17/2024 DEPRESSION SCREENING 05/23/2024 MAMMOGRAM 10/26/2025 10/27/2023, 10/27/2023 Respiratory Syncytial Virus (RSV) Vaccine Pt: or over 60 yrs (1 - 1-dose 75+ series) 11/15/2030 HEPATITIS B VACCINE Aged Out No longe r eligible based on patient's age to complete this topic HIB VACCINE Aged Out No longer eligi ble based on patient's age to complete this topic HPV VACCINE Aged Out No longer eligi ble based on patient's age to complete this topic MENINGOCOCCAL (Group B) VACCINE Aged Out No longer eligible b ased on patient's age to complete this topic MENINGOCOCCAL VACCINE Aged Out No trista edil eligible based on patient's age to complete this topic Procedures Procedure Name Priority Date/Time Associated Diagnosis Comments [place] FIX LID PTOSIS,LEVATR RESEC,ACQUISITION CONSULTANT 05/09/2024 11:04 AM CUSTOMER RETENTION SPECIALIST 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
--- OUTSIDE RECORDS SUMMARY | 2024-06-18 14:03 | XMS_ITS | Clinical Summary ---
Author Organization [facility] Address [address] [place] [address] Care Team Providers Care Veneer Jointer Offbearer Name Role Phone Cici Mcknight DO Primary Care Provider [phone] Social History Tobacco Use Types Packs/Day Years Used Date Smoking Tobacco: Never Assessed Personal Safety Answer Date Recorded Getting School Help Needed Not on file 09/26 Comments Unknown Sex and Gender Information Value Date Recorded Sex Assigned at Not on file Legal Sex Female 9:32 AM CDT Gender Identity Not on file Sexual Orientation Not on file Plan of Treatment Health Maintenance Due Date Last Done Comments Colon Cancer Screening-Colonoscopy 1955 Depression Screening 1955 Fall Risk Assessment 1955 Hepatitis C Screening 1955 Osteoporosis Screening-Bone Density Scan 1955 DTaP/Tdap/Td Vaccine (1 - Tdap) 11/15/1966 Hepatitis B Screening 11/15/1973 Zoster Vaccine (1 of 2) 11/15/2005 Pneumococcal vaccine 65+ (1 of 1 - PCV) 11/15/2020 Well Visit 65+ 11/15/2020 Covid-19 Vaccine ( - 2023-2 5 season) 2024 10/12/2022, 03/17/2022, 09/08/2021, Additional history exists Influenza Vaccine (#1) 2024 03/09/2023, 2021 Breast Cancer Screening-Mammogram 10/26/2024 024 Procedures Procedure Name Priority Date/Time Associated Diagnosis [...] to a prior imaging study performed at [facility]. ??[facility] on 09/30/2022. There are scattered areas of [...] to a prior imaging study performed at [facility]. [facility] on 09/30/2022. There are scattered areas of fibroglandular density. There is no suspicious abnormality in either breast. Impression: There is no mammographic evidence of malignancy. Annual screening mammography is recommended. OVERALL FINAL ASSESSMENT: BI-RADS CATEGORY 1: Negative. us Self Screening Mammogram IMG MAMMO PROCEDURES Fi nal Result from Last 3 Months or Most Recently Relevant to Health [place] [address] [place] [address] MEDICARE COMMERCIAL GENERIC Care Teams Veneer Jointer Offbearer Relationship Specialty Start Date End Date Cici Mcknight DO [address] [place] [address] [place] [address] PCP - General Family Medicine 09/27/23
--- OUTSIDE RECORDS SUMMARY | 2024-06-18 14:03 | XMS_ITS | Referral Summary ---
Author Organization [facility] Address [address] [place] [address] Care Team Providers Care Sr. Manager Name Role Phone Cici Mcknight DO Primary Care Provider [phone] Source Comments [facility],non-owned Affiliates and Associated Physician Practices is am[facility] hospitale site organization consisting of ambulatory clinics and hospital sitesin [place], [place], [place] and [place]. This disclosure is being madepursuant to the Care Everywhere program and may not contain all information available regarding this patient. 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 05/09/2024 Travel 05/09/2024 11:00 AM RECORD CHANGER - 05/09/2024 1:20 PM RECORD CHANGER Surgery [facility] [address] [place] [phone] Jillian Gomes MD Bilateral ptosis repair via blepharoplasty incision and excision of bilateral upper and lower eyelid xanthelasma, BILATERAL 05/09/2024 11:07 AM RECORD CHANGER Anesthesia Event [facility] [address] [place] [address] [phone] Chidi Walker MD Rinderer, Mallory, CREATIVE WRITING TEACHER-FOOD CROPS FARM HAND 05/09/2024 9:13 AM RECORD CHANGER - 05/09/2024 2:19 PM RECORD CHANGER Hospital Encounter [facility] [address] [place] [address] Jillian Gomes MD Surgery General Discharge Disposition: Home or Self Care from Last 3 Months Allergies Active Allergy Reactions Criticality Noted Date Comments Adhesive Sensitivity Rash Medium 01/31/2024 Hydrocodone Itching Medium 01/31/2024 Bupropion Urticaria,Rash Medium 01/31/2024 Medications * Be aware that medications may not be up to date on this document. Always verify current medications with the patient. Medication Sig [...] Comments Blood Pressure 139/74 05/09/2024 1:46 PM RECORD CHANGER Pulse 77 05/09/2024 1:46 PM RECORD CHANGER Temperature 36.3 ??C (97.4 ??F) 05/09/2024 1:36 PM CS T Respiratory Rate 13 05/09/2024 1:46 PM RECORD CHANGER Oxygen Saturation 92% 05/09/2024 1:46 PM RECORD CHANGER Inhaled Oxygen Concentration - - Weight 93.9 kg (207 lb) 05/09/2024 9:32 AM RECORD CHANGER Height 162.6 cm (5' 4 ) 05/09/2024 9:32 AM RECORD CHANGER Body Mass Index 35.53 05/09/2024 9:32 AM RECORD CHANGER Plan of Treatment Upcoming Encounters Date Type Department Care Team (Late st Contact Info) Description 07/11/2024 10:15 AM RECORD CHANGER Office Visit [facility] - Ophthalmology [address] [place] [phone] Jillian Gomes MD [address] [place] [address] [place] [phone] Procedures Procedure Name Priority Date/Time Associated Diagnosis Comments MI FIX LID PTOSIS,LEVATR RESEC,SIDEROGRAPHIST 05/09/2024 11:04 AM RECORD CHANGER Ptosis of both eyelids Dermatochalasis of both upper eyelids Xanthelasma of eyelid, bilateral Special Needs SUPINE, MAC LOCAL from Last 3 Months Care Teams Sr. Manager Relationship Specialty Start Date End Date Cici Mcknight DO [address] [place] [address] PCP - General 09/14/22
[2024-06-19 08:20] LABS: Kit Draw Collected
== END 2024-06-18 13:21 | disposition home or self-care (01) ==
LOC: ANHGOSHLAB 13:21
PROVIDERS: PCP Family Medicine; Visit Provider Family Medicine
DX: D64.9 Anemia, unspecified (principal); E78.5 Hyperlipidemia, unspecified; R74.8 Abnormal levels of other serum enzymes; Z79.899 Other long term (current) drug therapy; Z68.39 Body mass index [BMI] 39.0-39.9, adult; E55.9 Vitamin D deficiency, unspecified; E66.9 Obesity, unspecified
CPT/HCPCS: 36415

== ENCOUNTER 2024-11-27 10:56 | Outpatient (CLI) | payer MEDICARE, SELFPAY ==
--- NOTE | ~2024-11-27 | DEXA_ITS ---
Bone Density Report Name: JENNIFER PACK Age: 69 Sex: Female Ethnicity: White Date of : 1955 Indication: postmenopausal; screening for osteoporosis; height loss; inflammatory bowel disease; hysterectomy; Referring Provider: EDWIN CLARK Study: Bone densitometry was performed. Exam Date: November 27, 2024 Accession number: [id number] Bone Density: Region BMD T-score Z-score Classification AP Spine(L1-L4) 0.959 -0.8 1.2 Normal Femoral Neck (Left) 0.669 -1.6 0.1 Osteopenia Total Hip (Left) 0.898 -0.4 1.1 Normal Femoral Neck (Right) 0.677 -1.5 0.2 Osteopenia Total Hip (Right) 0.814 -1.1 0.4 Osteopenia Total Hip Mean 0.856 -0.8 0.8 Normal World Health Organization criteria for BMD impression classify patients as: Normal (T-score at or above -1.0), Osteopenia (T-score between -1.0 and -2.5), or Osteoporosis (T-score at or below -2.5). 10-year Fracture Risk(1): Major Osteoporotic Fracture 9.1% Hip Fracture 1.2% Reported Risk Factors: [place] (), Neck BMD=0.669, BMI=37.9 (1) FRAX(R) Version 3.08. Fracture probability calculated for an untreated patient. Fracture probability may be lower if the patient has received treatment. Clinical Information Provided by Patient: Has used the following medications: Vitamin D, Calcium Has the following medical conditions: Inflammatory bowel diseases, Hysterectomy Patient maximum height was 64 Menopause Age: 57 No regular weight bearing exercise Drinks caffeinated beverages Onset of menses at age 11 Number of children 1 Impression: The patient has low bone mass, based on the Left Femoral Neck T-score. The patient has an estimated ten-year risk of hip fracture of 1.2% and an estimated ten-year risk of major fracture of 9.1%, based on the WHO FRAX algorithm. Discussion: BONE DENSITY IS LOW AT ONE OR MORE SKELETAL SITES. This patient's lowest T-score is low at one or more skeletal sites. It meets the World Health Organization's (WHO) criteria for ?low bone mass? (T-score between -1.0 and -2.5). The patient's 10-year risk of fracture as calculated by FRAX is less than the threshold where pharmacological therapy is recommended by the National Osteoporosis Foundation (NOF). However, all treatment decisions require clinical judgment and consideration of individual patient factors, including patient preferences, comorbidities, previous drug use, risk factors not captured in the FRAX model (e.g., frailty, falls, vitamin D deficiency, increased bone turnover, interval significant decline in bone density) and possible under or overestimation of fracture risk by FRAX. The patient should follow a healthful lifestyle (good nutrition with adequate calcium and vitamin D, and appropriate weight-bearing exercise). Follow-Up: Consider repeating this study in 2 to 3 years to reassess this patient's status, or sooner if there is some new clinical indication. Reported by: JENNIFER on 11/27/2024 11:36:00 AM. Reviewed, dictated and finalized at location A.
--- OUTSIDE RECORDS SUMMARY | 2024-11-27 11:02 | XMS_ITS | Clinical Summary ---
Author Organization [facility] Address [address] [facility] [facility] [place] [address] Care Team Providers Care Funeral Sales Manager Name Role Phone Cici Mcknight DO Primary Care Provider [phone] Washington Bourgeois OD Unavailable Source Comments [facility],non-[facility] Affiliates and Associated Physician Practices is amultiple site organization consisting of ambulatory clinics and hospital sitesin [place], [place], [place] and [place]. This disclosure is being madepursuant to the Care Everywhere program and may not contain all information available regarding this patient. Last updated 18.[facility] Allergies Active Allergy Reactions Criticality Noted Date Comments Adhesive Sensitivity Rash Medium 01/31/2024 Hydrocodone Itching Medium 01/31/2024 Bupropion Urticaria,Rash Medium 01/31/2024 Medications * Be aware that medications may not be up to date on this document. Alwaysverify current medications with the patient. CRANBERRY PO Take 700 mg by mouth once daily Active ibuprofen (Advil) 200 MG capsule Take 1 (one) capsule by mouth 2 times daily as needed Active Cholecalciferol (SM Vitamin D3) 100 MCG [...] tablets by mouth 2 times daily Active atorvastatin (Lipitor) 10 MG tablet 07/21/2024 Active fish oil/omega-3 fatty acids (Promega;Cardi- [place] 3) 1000 MG capsule Take 1 (one) capsule by mouth 3 times daily with meals Active Active Problems Problem Noted Date Diagnosed [...] more drinks on one occasion? Never 05/09/2024 Comments Unknown Sex and Gender Information Value Date Recorded Sex Assigned at Not on file Legal Sex Female 3:48 PM CDT Gender Identity Not on file Sexual Orientation Not on file Last Filed Vital Signs Vital Sign Reading Time Taken Comments Blood Pressure 139/74 05/09/2024 1:46 PM RAILCAR CARPENTER Pulse 77 05/09/2024 1:46 PM RAILCAR CARPENTER Temperature 36.3 C (97.4 F) 05/09/2024 1:36 PM RAILCAR CARPENTER Respiratory Rate 13 05/09/2024 1:46 PM RAILCAR CARPENTER Oxygen Saturation 92% 05/09/2024 1:46 PM RAILCAR CARPENTER Inhaled Oxygen Concentration - - Weight 93.9 kg (207 lb) 05/09/2024 9:32 AM RAILCAR CARPENTER Height 162.6 cm (5' 4) 05/09/2024 9:32 AM RAILCAR CARPENTER Body Mass Index 35.53 05/09/2024 9:32 AM RAILCAR CARPENTER Plan of Treatment Health Maintenance Due Date Last Done Comments BONE DENSITY TESTING 1955 COLOGUARD (AGES 45-75) - COL ON CA SCREENING 1955 COLON MONITORING 1955 COLONOSCOPY - COLON CA SCREENING 1955 CT COLONOGRAPHY - COLON CA SCREENING 1955 Colorectal Cancer Screening 1955 FIT - COLON CA SCREENING 1955 FLEX SIG - COLON CA SCREENING 1955 MEDICARE AWV 12 MONTHS 1955 HEPATITIS C SCREENING 11/11/1973 DTAP/TDAP/TD VACCINES (1 - Tdap) 11/15/1974 PNEUMOCOCCAL VACCINE 50+ (1 of 1 - PCV) 11/15/2005 ZOSTER VACCINE (1 of 2) 11/15/2005 COVID-19 VACCINE (1 - 2023-2 5 season) 2024 SCREENING FOR DIABETES 05/17/2024 DEPRESSION SCREENING 05/23/2024 INFLUENZA VACCINE (#1) 2025 MAMMOGRAM 10/26/2025 10/27/2023, 10/27/2023 Respiratory Syncytial Virus [...] complete this topic MENINGOCOCCAL (Group B) VACCINE SHARED DECISION-MAKING Aged Out No longer eligible based on patient's age to complete this topic MENINGOCOCCAL GROUPS A/C/Y/W VACCINE Aged Out No longer eligible b ased on patient's age [place] [address] [place] [address] MEDICARE MEDICARE SUPPLEMENT PAYOR GENERIC Care Teams Funeral Sales Manager Relationship Specialty Start Date End Date Cici Mcknight DO [address] [place] [address] PCP - General 09/14/22 Washington Bourgeois OD [address] [facility] [address] [place] [address] Evp Operations 08/01/24
--- OUTSIDE RECORDS SUMMARY | 2024-11-27 11:02 | XMS_ITS | Clinical Summary ---
Author Organization [facility] Address [address] [place] [address] Care Team Providers Care Hot Knife Cutter Name Role Phone Cici Mcknight DO Primary Care Provider [phone] Social History Tobacco Use Types Packs/Day Years [...] - Tdap) 11/15/1966 Hepatitis B Screening 11/15/1973 Pneumococcal vaccine 65+ (1 of 1 - PCV) 11/15/2005 Zoster Vaccine (1 of 2) 11/15/2005 Well Visit 65+ 11/15/2020 Covid-19 Vaccine ( - 2023-2 5 season) 2024 10/12/2022, 03/17/2022, 09/08/2021, Additional history exists Breast Cancer Screening-Mammogram 10/26/2024 024 Influenza Vaccine (Season Ended) 2025 03/09/20, 03/17/2022 Procedures Procedure Name Priority Date/Time Associated Diagnosis [...] to a prior imaging study performed at [facility] on 09/30/2022. There are scattered areas of fibroglandular density. There is no suspicious abnormality in either breast. Impression: There is no mammographic evidence of malignancy. Annual screening mammography is recommended. OVERALL FINAL ASSESSMENT: BI-RADS CATEGORY 1: Negative. Procedure Note Earline Dorado MD - 10/28/2023 Mammogram Technique: Bilateral Digital Breast Tomosynthesis, Bilateral C-view 2D Screening mammogram. Views obtained: bilateral craniocaudal and bilateral mediolateral oblique. Computer Aided Detection was performed. Mammogram Findings: The present examination has been compared to a prior imaging study performed at [facility] on 09/30/2022. There are scattered areas of fibroglandular density. There is no suspicious abnormality in either breast. Impression: There is no mammographic evidence of malignancy. Annual screening mammography is recommended. OVERALL FINAL ASSESSMENT: BI-RADS CATEGORY 1: Negative. us Self Screening Mammogram IMG MAMMO PROCEDURES Fi nal Result from Last 3 Months or Most Recently Relevant to [place] [address] [place] [address] MEDICARE COMMERCIAL GENERIC Care Teams Hot Knife Cutter Relationship Specialty Start Date End Date Cici Mcknight DO [address] [place] [address] [place] [address] PCP - General Family Medicine 09/27/23
--- OUTSIDE RECORDS SUMMARY | 2024-11-27 11:02 | XMS_ITS | Referral Summary ---
Author Organization [facility] Address [address] [place] [address] Care Team Providers Care Hospital Tray Service Worker Name Role Phone Cici Mcknight DO Primary Care Provider [phone] Social History Tobacco Use Types Packs/Day Years [...] to a prior imaging study performed at [facility] on 09/30/2022. There are scattered areas of [...] to a prior imaging study performed at [facility] on 09/30/2022. There are scattered areas of fibroglandular density. There is no suspicious abnormality in either breast. Impression: There is no mammographic evidence of malignancy. Annual screening mammography is recommended. OVERALL FINAL ASSESSMENT: BI-RADS CATEGORY 1: Negative. us Self Screening Mammogram IMG MAMMO PROCEDURES Fi nal Result from Last 3 Months or Most Recently Relevant to [place] [address] [address] [place] [address] MEDICARE COMMERCIAL GENERIC Care Teams Hospital Tray Service Worker Relationship Specialty Start Date End Date Cici Mcknight DO [address] [facility] [facility] [place] [address] PCP - General Family Medicine 09/27/23
== END 2024-11-27 10:57 | disposition home or self-care (01) ==
LOC: ANHIMG 10:58
PROVIDERS: PCP Family Medicine; Visit Provider Family Medicine
DX: M85.88 Other specified disorders of bone density and structure, other site (principal); M85.852 Other specified disorders of bone density and structure, left thigh; M85.851 Other specified disorders of bone density and structure, right thigh
CPT/HCPCS: 77080

== ENCOUNTER 2024-12-17 08:32 | Outpatient (CLI) | payer MEDICARE, SELFPAY ==
--- NOTE | ~2024-12-17 | MM_ITS ---
EXAMINATION: MM screening grabiel BI w nida HISTORY: Screening TECHNIQUE: Craniocaudal and mediolateral oblique 3-D tomosynthesis images were obtained and synthetic 2-D images were generated. CAD analysis was submitted and interpreted. COMPARISON: Comparison to multiple prior studies sequentially, with oldest reviewed study dated 02/2104/18/2018. BREAST PARENCHYMAL COMPOSITION: Not dense: There are scattered areas of fibroglandular density. FINDINGS: Bilateral breast asymmetries are stable. There is no evidence of suspicious mass, calcifica tion, or architectural distortion to suggest malignancy in either breast. There has been no suspiciou s interval change. IMPRESSION: 1. No mammographic evidence of malignancy. 2. Recommend routine screening mammography in one year. BI-RADS Category 1: Negative Reviewed, dictated and finalized at location B.
--- OUTSIDE RECORDS SUMMARY | 2024-12-17 08:36 | XMS_ITS | Clinical Summary ---
Author Organization [facility] Address [address] [place] [address] Care Team Providers Care Machine Marker Name Role Phone Cici Mcknight DO Primary Care Provider [phone] Social History Tobacco Use Types Packs/Day Years [...] 11/15/2005 Well Visit 65+ 11/15/2020 Covid-19 Vaccine (5 - 2023-2 5 season) 2024 10/12/2022, 03/17/2022, 09/08/2021, Additional history exists Breast Cancer Screening-Mammogram 10/26/2024 024 Influenza Vaccine (#1) 2025 03/09/2023, 2021 Procedures Procedure Name Priority Date/Time Associated Diagnosis [...] to a prior imaging study performed at [facility] on 09/30/2022. There are scattered areas [...] to a prior imaging study performed at [facility] on 09/30/2022. There are scattered areas of fibroglandular density. There is no suspicious abnormality in either breast. Impression: There is no mammographic evidence of malignancy. Annual screening mammography is recommended. OVERALL FINAL ASSESSMENT: BI-RADS CATEGORY 1: Negative. us Self Screening Mammogram IMG MAMMO PROCEDURES Fi nal Result from Last 3 Months or Most Recently Relevant to [place] [address] [place] [address] MEDICARE COMMERCIAL GENERIC Care Teams Machine Marker Relationship Specialty Start Date End Date Cici Mcknight DO [address] [place] [address] [place] [address] PCP - General Family Medicine 09/27/23
--- OUTSIDE RECORDS SUMMARY | 2024-12-17 08:36 | XMS_ITS | Referral Summary ---
Author Organization [facility] Address [address] [place] [address] Care Team Providers Care Movers Name Role Phone Cici Mcknight DO Primary Care Provider [phone]- [phone] Social History Tobacco Use Types Packs/Day Years [...] to a prior imaging study performed at [facility] [place] on 09/[place]/2022. There are scattered areas of [...] to a prior imaging study performed at [facility] [place] on 09[place]/2022. There are scattered areas of fibroglandular density. There is no suspicious abnormality in either breast. Impression: There is no mammographic evidence of malignancy. Annual screening mammography is recommended. OVERALL FINAL ASSESSMENT: BI-RADS CATEGORY 1: Negative. us Self Screening Mammogram IMG MAMMO PROCEDURES Fi nal Result from Last 3 Months or Most Recently Relevant to [place] [address] [place] [address] MEDICARE COMMERCIAL GENERIC Care Teams Movers Relationship Specialty Start Date End Date Cici Mcknight DO [address] [facility] [address] [facility] [place] [address] PCP - General Family Medicine 09/27/23
--- OUTSIDE RECORDS SUMMARY | 2024-12-17 08:36 | XMS_ITS | Clinical Summary ---
Author Organization [facility] Address [address] [place] [address] Care Team Providers Care Radio Journalist Name Role Phone Cici Mcknight DO Primary Care Provider Washington Bourgeois OD Unavailable Source Comments [facility],non-[facility] Affiliates and Associated Physician Practices is amultiple site organization consisting of ambulatory clinics and hospital sitesin [place], [place], [place] and [place]. This disclosure is being madepursuant to the Care Everywhere program and may not contain all information available regarding this patient. Last updated 18.[facility] Allergies Active Allergy Reactions Criticality Noted [...] 07/21/2024 Active fish oil/omega-3 fatty acids (Promega;Cardi- [place] 3) 1000 MG capsule Take 1 (one) [...] Comments Blood Pressure 139/74 05/09/2024 1:46 PM PUBLIC RELATIONS SPECIALIST Pulse 77 05/09/2024 1:46 PM PUBLIC RELATIONS SPECIALIST Temperature 36.3 C (97.4 F) 05/09/2024 1:36 PM PUBLIC RELATIONS SPECIALIST Respiratory Rate 13 05/09/2024 1:46 PM PUBLIC RELATIONS SPECIALIST Oxygen Saturation 92% 05/09/2024 1:46 PM PUBLIC RELATIONS SPECIALIST Inhaled Oxygen Concentration - - Weight 93.9 kg (207 lb) 05/09/2024 9:32 AM PUBLIC RELATIONS SPECIALIST Height 162.6 cm (5' 4) 05/09/2024 9:32 AM PUBLIC RELATIONS SPECIALIST Body Mass Index 35.53 05/09/2024 9:32 AM PUBLIC RELATIONS SPECIALIST Plan of Treatment Health Maintenance Due Date [...] to [place] [address] [place] [address] MEDICARE MEDICARE SUPPLEMENT PAYOR GENERIC Care Teams Radio Journalist Relationship Specialty Start Date End Date Cici Mcknight DO [address] [place] [address] PCP - General 09/14/22 Washington Bourgeois OD [address] [facility] [address] [place] [address] Inside Sales Engineer 08/01/24
== END 2024-12-17 08:33 | disposition home or self-care (01) ==
LOC: ANHIMG 08:34
PROVIDERS: PCP Family Medicine; Visit Provider Family Medicine
DX: Z12.31 Encounter for screening mammogram for malignant neoplasm of breast (principal); M85.88 Other specified disorders of bone density and structure, other site
CPT/HCPCS: 77063; 77067

== ENCOUNTER 2025-04-14 12:03 | Emergency (ER) | payer MEDICARE, SELFPAY ==
[2025-04-14 12:12] VITALS: BP 154/81; PULSE 83; RESP 16; TEMP 36.4; O2SAT 99
--- NOTE | 2025-04-14 13:28 | ED.GENADULT ---
HPI - General Adult General Chief complaint: Unspecified Stated complaint: tongue swelling Time Seen by Provider: 04/14/25 13:15 Source: patient and RN notes reviewed Mode of arrival: ambulatory Limitations: no limitations History of Present Illness HPI narrative: 69-year-old female patient presents today complaining of swelling to the right side of her tongue since 12/19 this morning. She woke up with toe pain, which progressed to some swelling. At time of exam, she states symptoms have significantly improved. She did not take any medication for symptoms prior to arrival. During this episode, she denies any shortness of breath, difficulty swallowing. States she has symptoms such as this approximately 10 years ago, and the etiology was never found. Related Data Home Medications ?Medication ?Instructions ?Recorded ?Confirmed ?Last Taken ?Type cholecalciferol (vitamin D3) 125 125 mcg PO DAILY 01/18/22 04/14/25 08/19/22 History mcg (5,000 unit) capsule ibuprofen 200 mg tablet (Advil) 200 mg PO Q6H PRN Pain 01/18/22 04/14/25 Unknown History omega-3 fatty acids 500 mg capsule 500 mg PO DAILY 01/18/22 04/14/25 08/19/22 History apremilast 30 mg tablet (Otezla) 60 mg PO DAILY 11/16/22 04/14/25 Unknown History vitamin E (dl, acetate) 45 mg (100 135 mg PO DAILY 11/16/22 04/14/25 Unknown History unit) capsule ascorbate calcium (vitamin C) 500 500 mg PO DAILY 07/08/23 04/14/25 Unknown History mg tablet atorvastatin 10 mg tablet mg 04/14/25 Unknown History burbering 04/14/25 Unknown History Allergies Allergy/AdvReac Type Severity Reaction Status Date / Time bupropion (From Wellbutrin) Allergy Hives Verified 04/14/25 12:09 hydrocodone (From Vicodin) Allergy Itching Verified 04/14/25 12:09 PMF Past Medical History Medical History (Reviewed 04/14/25 @ 13:29 by Sonia Sheets, [employer], [employer]) BMI 39.0-39.9,adult Fatty liver Primary biliary cholangitis Irritable bowel syndrome with diarrhea Adenomatous colon polyp GERD (gastroesophageal reflux disease) IBS (irritable bowel syndrome) Surgical History Surgical History History of tonsillectomy (~1972) H/O: hysterectomy (~1999) History of cholecystectomy (~2005) Hx of lithotripsy (~2018) Family History Family History Father Alcoholism Asthma Cancer Depression Anxiety Sibling Alcoholism Asthma Cancer Depression Anxiety Grandparent Cancer Mother Depression Anxiety Cerebrovascular accident Social History Social History Social History: Caffeine-tea/soda Smoking packs per day: 0.5 Smoking cigarettes per day: 10.0 Years smoked: 10 Smoking pack-years: 5.00 Smoking status: Former smoker Tobacco type: cigarettes Alcohol intake: never Alcohol use details: wine Substance use type: does not use Lack of Transportation: No Lack of Food: Never True Current Housing: I Have Housing Concerned About Future Housing: No Difficulty Paying Gas/Electric Bills: No Difficulty Paying for Meds: No Currently Unemployed: No Education: Associate Degree Difficulty w/ Childcare or Family Care: No Living arrangements: with family Spiritual care concerns: No Comments At time of signature, I have reviewed and agree with nursing past medical, surgical, social and family history unless otherwise noted. Please see nursing chart for further information. There is no relevant family history pertinent to the presenting complaint Exam Narrative: GENERAL: Well-appearing, well-nourished, and in no acute distress. HEAD: Normocephalic, atraumatic. EYES: EOMI. No redness or drainage. Conjunctivae normal. ENT: Mucous membranes pink and moist. Nares clear. No rhinorrhea. Throat normal. Uvula midline.Right half of the tongue is mildly swollen. No erythema. No facial swelling noted. NECK: Normal AROM. Supple. No lymphadenopathy. CHEST: No respiratory distress. Clear to auscultation. HEART: Regular rate and rhythm. No murmur appreciated. EXTREMITIES: Normal range of motion. No edema. SKIN: Warm, dry, no rash. Capillary refill normal. Normal skin turgor. NEURO: No focal deficits. Alert and oriented x3. Gait steady. PSYCH: Normal affect. No signs of depression or anxiety. Course Course Level of Care: Express Care Visit Vital Signs Vital signs: Vital Signs Temperature 97.6 F 04/14/25 12:12 Pulse Rate 83 04/14/25 12:12 Respiratory Rate 16 04/14/25 12:12 Blood Pressure 154/81 H 04/14/25 12:12 Pulse Oximetry 99 04/14/25 12:12 Temperature 97.6 F 04/14/25 12:12 Pulse Rate 83 04/14/25 12:12 Respiratory Rate 16 04/14/25 12:12 Blood Pressure 154/81 H 04/14/25 12:12 Pulse Oximetry 99 04/14/25 12:12 Reviewed Medical Decision Making MDM Narrative Medical decision making narrative: 69-year-old female patient presents today complaining of swelling to the right side of her tongue since 12/19 this morning. She woke up with toe pain, which progressed to some swelling. At time of exam, she states symptoms have significantly improved. She did not take any medication for symptoms prior to arrival. During this episode, she denies any shortness of breath, difficulty swallowing. States she has symptoms such as this approximately 10 years ago, and the etiology was never found. Upon exam,Throat normal. Uvula midline.Right half of the tongue is mildly swollen. No erythema. No facial swelling noted. Differential Diagnosis Differential Diagnosis: Allergic reaction, thrush, trauma Vital Signs Vital Signs: Vital Signs Temperature 97.6 F 04/14/25 12:12 Pulse Rate 83 04/14/25 12:12 Respiratory Rate 16 04/14/25 12:12 Blood Pressure 154/81 H 04/14/25 12:12 Pulse Oximetry 99 04/14/25 12:12 Temperature 97.6 F 04/14/25 12:12 Pulse Rate 83 04/14/25 12:12 Respiratory Rate 16 04/14/25 12:12 Blood Pressure 154/81 H 04/14/25 12:12 Pulse Oximetry 99 04/14/25 12:12 Critical Care Time Critical Care Time Critical Care Time: No Discharge Plan Discharge Clinical Impression: Tongue swelling Patient Disposition: Home Condition: Stable Additional Instructions: Please take the prednisone as prescribed. If you have another episode such as the 1 today, take an antihistamine (Zyrtec, Claritin, Lacey, Benadryl), Pepcid. If symptoms are not getting better, but not getting worse, and you are not short of breath, not having difficulty swallowing, and are not feeling that you need to go to the emergency room, you may then need to take a dose of prednisone. If these episodes become more frequent, please follow-up with your PCP. Patient Language: Kenyan Prescriptions: New prednisone 20 mg tablet 40 mg PO DAILY 3 Days Qty: 6 0RF No Action atorvastatin 10 mg tablet burbering ibuprofen [Advil] 200 mg tablet 200 mg PO Q6H PRN (Reason: Pain) cholecalciferol (vitamin D3) 125 mcg (5,000 unit) capsule 125 mcg PO DAILY omega-3 fatty acids 500 mg capsule 500 mg PO DAILY buspirone 7.5 mg tablet 7.5 mg PO BID Qty: 180 0RF hydrocortisone 2.5 % cream 1 applic topical BID PRN (Reason: itching) Qty: 30 6RF alprazolam 0.25 mg tablet 0.25 mg PO BID PRN (Reason: anxiety) Qty: 14 0RF vitamin E (dl, acetate) 45 mg (100 unit) capsule 135 mg PO DAILY ascorbate calcium (vitamin C) 500 mg tablet 500 mg PO DAILY Otezla 30 mg tablet 60 mg PO DAILY Follow-up/Referrals: Cici Mcknight DO [Primary Care Provider, Family Practice] Time of Disposition: 13:28
== END 2025-04-14 13:30 | disposition home or self-care (01) ==
PROVIDERS: Emergency Provider Nurse Practitioner; PCP Family Medicine
DX: R22.0 Localized swelling, mass and lump, head (principal); K76.0 Fatty (change of) liver, not elsewhere classified; K21.9 Gastro-esophageal reflux disease without esophagitis; Z87.891 Personal history of nicotine dependence
CPT/HCPCS: 99213; G0463